=== PATIENT | male | born 1980 | race Caucasian/White ===

== ENCOUNTER 2020-09-10 02:19 | Emergency (ER) | payer SELFPAY ==
[~2020-09-10] VITALS: Ht 170.2 cm; Wt 77.0 kg
[2020-09-10 05:40] VITALS: BP 126/84
== END 2020-09-10 05:40 | disposition home or self-care (01) ==
LOC: ER 02:19
DX: U07.1 COVID-19 (principal); R11.0 Nausea
CPT/HCPCS: 71045; 87635; 93005; 99285